=== PATIENT | female | born 1975 | race Caucasian/White ===

== ENCOUNTER 2016-07-22 17:19 | Inpatient (IN) ==
[2016-07-22] MEDS ORDERED: 0.9 % Sodium Chloride 1,000 ML IVC ONE (17:38)
[2016-07-22] MEDS ORDERED: Ipratropium/Albuterol Neb 3 ML IH ONE (17:38)
[2016-07-22] MEDS ORDERED: Levofloxacin 750 MG/150 ML 750 MG/150 ML BAG IVPB ONE (17:38)
--- NOTE | 2016-07-22 17:38 | Emergency Department Note ---
Disposition Clinical Impression: Pneumonia Qualifiers: Pneumonia type: due to unspecified organism Laterality: right Lung location: upper lobe of lung Qualified Code(s): J18.1 - Lobar pneumonia, unspecified organism Disposition: Admitted As Inpatient Condition: Fair Referrals: Han Cuello DO [Primary Care Provider] - Forms: ED Satisfaction Letter URI/Sore Throat HPI - General Chief Complaint: ED Upper Respiratory Infection Stated Complaint: Possible pneumonia, flu Time Seen by Provider: 07/22/16 17:32 Source: patient, family Mode of arrival: private vehicle Limitations: no limitations Nursing Notes Reviewed: Yes Vital Signs Reviewed: Yes - History of Present Illness HPI Narrative: Patient reports that she has been feeling poorly for about 2 weeks. She relates 2 days ago she went to urgent care and was thought to have bronchitis or pneumonia. She states she received a shot and 5 prescriptions. She has been gradually worse at home despite doing home aerosols. She states her saturations were 91-92% at the urgent care and up and about 94% at home. She saw her nurse practitioner today and is advised that she probably need to be admitted for likely flu or pneumonia with failure of outpatient treatment. She states she is still coughing up green phlegm and having severe dyspnea on exertion. She reports fevers, chills and diffuse muscle aches. She states she has just had slight sore throat and ear pain in the last day. She denies nausea , vomiting, diarrhea or abdominal pain. She denies being around anybody else who has had similar illness. Pt Subjective Complaint: fever, cough, flu symptoms, sore throat, earache Onset (ago): day(s) Duration: gradually worsening Severity: moderate Improves with: vaporizer Worsens with: exertion, night If sputum, description: green Context: multiple patients with similar complaints Associated symptoms: Reports: fever, chills, myalgias, headache, sore throat, cough, shortness of breath, ear pain. Denies: stiff neck, chest pain, nausea, vomiting, diarrhea, dysuria, rash, epistaxis Treatments prior to arrival: "cold medicine", antibiotics, other healthcare encounter for this problem - Related Data Home Medications Medication Instructions Recorded Confirmed FLUoxetine HCl [Prozac] 40 mg PO QAM 07/22/16 07/22/16 Gabapentin [Neurontin] 300 mg PO BID 07/22/16 07/22/16 Omeprazole 40 mg PO QAM 07/22/16 07/22/16 Valsartan/Hydrochlorothiazide 1 each PO QAM 07/22/16 07/22/16 [Diovan Hct 160-25 mg Tablet] Previous Rx's Medication Instructions Recorded Albuterol Neb [Proventil Neb] 2.5 mg IH Q4HR #30 vial.neb 07/20/16 Albuterol Sulfate [Albuterol 2 puff IH Q4HR PRN #1 hfa.aer.ad 07/20/16 Inhaler] Cephalexin [Keflex] 500 mg PO TID #30 capsule 07/20/16 MethylPREDNISolone [Medrol] 4 mg PO DAILY #21 tablet 07/20/16 Allergies Allergy/AdvReac Type Severity Reaction Status Date / Time No Known Allergies Allergy Verified 07/20/16 17:39 All systems ED: reviewed and negative except as stated. URI PMH - Past Medical History Medical history: Reports: diabetes, hypertension, other (Obesity) Surgical history: Reports: other (Gastric sleeve) Psychiatric history: Reports: anxiety, depression - Social History Smoking Status: Never smoker Alcohol use: Reports: none Drug use: Reports: none Physical Exam - General Limitations: no limitations General appearance: alert, in no apparent distress - Head Head exam: atraumatic, normocephalic, normal inspection - Eye Eye exam: Present: normal appearance, PERRL, EOMI. Absent: scleral icterus, conjunctival injection - ENT ENT exam: normal exam, normal oropharynx, mucous membranes moist - Neck Neck exam: Present: normal inspection, full ROM, trachea midline. Absent: tenderness - Chest Chest inspection: Present: normal inspection, symmetric chest wall rise - Respiratory Respiratory exam: Present: respiratory distress, prolonged expiratory phase. Absent: wheezes, accessory muscle use - Cardiovascular Cardiovascular exam: Present: regular rate, normal rhythm, normal heart sounds. Absent: tachycardia - Abdominal Exam Abdominal exam: Present: soft, Non-Tender, normal bowel sounds. Absent: tenderness, distention, guarding, rebound, rigidity - Extremities Exam Extremities exam: Present: normal inspection, full ROM, normal capillary refill. Absent: tenderness, pedal edema - Expanded Lower Extremity Exam Neurovascular/Tendon exam: Present: normal capillary refill. Absent: motor deficit, sensory deficit, tendon deficit Gait: observed and normal - Back Exam Back exam: Present: normal inspection, full ROM. Absent: tenderness, CVA tenderness (R), CVA tenderness (L) - Neurological Exam Neurological exam: Present: alert, oriented X3 - Psychiatric Psychiatric exam: Present: normal affect, normal mood - Skin Skin exam: Present: warm, dry, intact, normal color. Absent: rash, cyanosis, diaphoresis, pallor Course Course Narrative: 183: Care has been discussed with Dr. Doan. Verbal orders are obtained for the patient's continued inpatient observation. Vital Signs Temperature 98.2 F 07/22/16 17:22 Pulse Rate 78 07/22/16 17:22 Respiratory Rate 20 07/22/16 17:22 Blood Pressure 185/98 07/22/16 17:22 O2 Sat by Pulse Oximetry 95 07/22/16 17:22 Temperature 98.2 F 07/22/16 17:28 Pulse Rate 69 07/22/16 18:19 Respiratory Rate 16 07/22/16 18:36 Blood Pressure 144/99 07/22/16 18:19 O2 Sat by Pulse Oximetry 95 07/22/16 18:36 Oxygen Delivery Oxygen Delivery Nasal Cannula Upper Respiratory Infection - Differential Diagnosis Differential Diagnosis: Likely: upper respiratory infection, other viral infection, influenza, pneumonia - Lab Data Lab results reviewed: Yes I reviewed the patient's lab results. Result diagrams: 07/22/16 17:50 07/22/16 17:50 Lab Results 07/22/16 07/22/16 Range/Units 17:50 17:50 WBC 18.2 H (4.3-11.1) K/mcL RBC 4.19 (3.82-4.97) M/mcL Hgb 12.1 (11.5-15.4) g/dL Hct 36.2 (35.3-44.9) % MCV 86.4 (83.0-100.0) fL MCH 28.9 (28.0-33.3) pg MCHC 33.4 (31.6-35.5) g/dL RDW 13.5 (11.5-14.5) % Plt Count 346 (140-400) K/mcL MPV 11.2 (9.4-12.4) fL Immature Gran % 2.5 (0-4) % Seg Neutrophils % 77.0 % Lymphocytes % 13.2 % Monocytes % 6.0 % Eosinophils % 0.9 % Basophils % 0.4 % Neutrophils # 14.0 H (1.6-8.9) K/mcL Lymphocytes # 2.4 (0.6-4.6) K/mcL Monocytes # 1.1 (0.0-1.3) K/mcL Eosinophils # 0.2 (0.0-0.6) K/mcL Basophils # 0.1 (0.0-0.2) K/mcL Sodium 137 (136-145) mEq/L Potassium 3.9 (3.5-4.5) mEq/L Chloride 100 (98-109) mEq/L Carbon Dioxide 24 (19-29) mEq/L BUN 19 (7-20) mg/dL Creatinine 0.91 (0.57-1.11) mg/dL Est GFR ( Amer) > 60 (> 60) Est GFR (Non-Af Amer) > 60 (> 60) BUN/Creatinine Ratio 21 (6-26) Glucose 239 H (70-99) mg/dL Calculated Osmolality 294 (280-300) Calcium 9.0 (8.6-10.8) mg/dL - Radiology Data Radiology results reviewed: Yes I reviewed the patient's radiology results. Single view chest x-ray is performed. This demonstrates a right upper lobe infiltrate without other acute findings. This is on my interpretation. Impressions Chest X-Ray 07/22/16 17:38 IMPRESSION: Perihilar right mid lung consolidation concerning for pneumonia or atelectasis. Follow-up radiographs suggested in 6-8 weeks. D/ / Trav Valdovinos MD / Trav Valdovinos MD Interpreting Provider: Trav Valdovinos MD
[2016-07-22 18:08] LABS: Basophils # 0.1 K/mcL (0.0-0.2); Basophils % 0.4 %; Eosinophils # 0.2 K/mcL (0.0-0.6); Eosinophils % 0.9 %; Hematocrit 36.2 % (35.3-44.9); Hemoglobin 12.1 g/dL (11.5-15.4); Immature Granulocytes % 2.5 % (0-4); Lymphocytes # 2.4 K/mcL (0.6-4.6); Lymphocytes % 13.2 %; Mean Corpuscular HGB Conc 33.4 g/dL (31.6-35.5); Mean Corpuscular Hemoglobin 28.9 pg (28.0-33.3); Mean Corpuscular Volume 86.4 fL (83.0-100.0); Mean Platelet Volume 11.2 fL (9.4-12.4); Monocytes # 1.1 K/mcL (0.0-1.3); Platelet Count 346 K/mcL (140-400); Red Blood Count 4.19 M/mcL (3.82-4.97); Red Cell Distribution Width 13.5 % (11.5-14.5)
[2016-07-22 18:24] LABS: BUN/Creatinine Ratio 21 (6-26); Blood Urea Nitrogen 19 mg/dL (7-20); Carbon Dioxide 24 mEq/L (19-29); Chloride 100 mEq/L (98-109); Glucose 239 mg/dL (70-99); Osmolality,Calculated 294 (280-300); Potassium 3.9 mEq/L (3.5-4.5); Sodium 137 mEq/L (136-145); eGFR For African Americans > 60 (> 60); eGFR For Non-African Americans > 60 (> 60)
[2016-07-22] MEDS ORDERED: Naloxone 0.4 MG/ML INJ IVP PRN (20:01)
[2016-07-22] MEDS ORDERED: Ondansetron 4 MG/2 ML VIAL IVP PRN (20:01)
[2016-07-22] MEDS ORDERED: Acetaminophen 325 MG TABLET PO PRN (20:01)
[2016-07-22] MEDS ORDERED: MOM Conc 10 ML UD.LIQ PO PRN (20:01)
[2016-07-22] MEDS ORDERED: Albuterol 2.5 MG/3 ML NEBULIZER IH SCH (20:01)
[2016-07-22] MEDS: Gabapentin 300 MG CAPSULE PO SCH (21:01)
[2016-07-22] MEDS: 0.9 % Sodium Chloride 1,000 ML IVC SCH (21:02)
[2016-07-22] MEDS: Ipratropium/Albuterol Neb 3 ML IH SCH (21:34)
[2016-07-22] MEDS ORDERED: Albuterol 2.5 MG/3 ML NEBULIZER IH PRN (21:42)
[2016-07-23] MEDS: MethylPREDNISolone 40 MG/ML VIAL IVP SCH ×2 (01:21→09:47)
[2016-07-23] MEDS: Ipratropium/Albuterol Neb 3 ML IH SCH ×2 (04:33→10:02)
[2016-07-23] MEDS: 0.9 % Sodium Chloride 1,000 ML IVC SCH (05:25)
[2016-07-23] MEDS: *HR* Enoxaparin 40 MG/0.4 ML SYRINGE SQ SCH (06:22)
[2016-07-23] MEDS: FLUoxetine 20 MG CAPSULE PO SCH (09:47)
[2016-07-23] MEDS: Ibuprofen 400 MG TABLET PO PRN (09:47)
[2016-07-23] MEDS: Levofloxacin 750 MG/150 ML 750 MG/150 ML BAG IVPB SCH (09:47)
[2016-07-23] MEDS: Gabapentin 300 MG CAPSULE PO SCH ×2 (09:47→20:37)
[2016-07-23] MEDS: Valsartan 160 MG TABLET PO SCH (09:50)
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
[2016-07-23] MEDS: Ipratropium/Albuterol Neb 3 ML IH PRN ×2 (16:15→20:52)
[2016-07-23] MEDS: PredniSONE 20 MG TABLET PO SCH (16:53)
[2016-07-24] MEDS: Ibuprofen 400 MG TABLET PO PRN ×3 (04:18→21:18)
[2016-07-24 05:50] LABS: Basophils % 0.3 %; Eosinophils % 0.1 %; Hematocrit 33.5 % (35.3-44.9); Hemoglobin 11.2 g/dL (11.5-15.4); Immature Granulocytes % 2.6 % (0-4); Lymphocytes # 1.6 K/mcL (0.6-4.6); Lymphocytes % 10.9 %; Mean Corpuscular HGB Conc 33.4 g/dL (31.6-35.5); Mean Corpuscular Hemoglobin 29.7 pg (28.0-33.3); Mean Corpuscular Volume 88.9 fL (83.0-100.0); Mean Platelet Volume 11.5 fL (9.4-12.4); Monocytes # 1.1 K/mcL (0.0-1.3); Monocytes % 7.3 %; Neutrophils # 11.4 K/mcL (1.6-8.9); Platelet Count 308 K/mcL (140-400); Red Blood Count 3.77 M/mcL (3.82-4.97); Red Cell Distribution Width 13.9 % (11.5-14.5); Segmented Neutrophils % 78.8 %
[2016-07-24] MEDS: *HR* Enoxaparin 40 MG/0.4 ML SYRINGE SQ SCH (06:39)
[2016-07-24] MEDS: PredniSONE 20 MG TABLET PO SCH ×2 (08:17→17:18)
[2016-07-24] MEDS: Valsartan 160 MG TABLET PO SCH (08:18)
[2016-07-24] MEDS: Gabapentin 300 MG CAPSULE PO SCH ×2 (08:19→21:09)
[2016-07-24] MEDS: FLUoxetine 20 MG CAPSULE PO SCH (08:19)
[2016-07-24] MEDS: Levofloxacin 750 MG/150 ML 750 MG/150 ML BAG IVPB SCH (08:20)
--- NOTE | 2016-07-24 08:51 | Internal Med Progress Note ---
Date of Encounter: 07/24/16 Time of Encounter: 08:45 - Assessment and plan (1) Pneumonia Current Visit: Yes Status: Acute Assessment and plan: July 24. Continue Levaquin and prednisone with Mucinex. Qualifiers: Pneumonia type: due to unspecified organism Laterality: right Lung location: middle lobe of lung Qualified Code(s): J18.1 - Lobar pneumonia, unspecified organism - Subjective Interval history: July 24. She has no new complaints. She feels minimally improved. - Constitutional Vitals: Temp Pulse Resp BP Pulse Ox 97.8 F 79 24 155/82 96 07/24/16 08:14 07/24/16 08:14 07/24/16 08:14 07/24/16 08:14 07/24/16 08:14 Exam: She is dyspneic at rest. I reviewed her medications and lab results. Internal Medicine: Result - Labs CBC & Chem 7: 07/24/16 05:25 07/22/16 17:50 Labs: Short CBC 07/24/16 Range/Units 05:25 WBC 14.4 H (4.3-11.1) K/mcL Hgb 11.2 L (11.5-15.4) g/dL Hct 33.5 L (35.3-44.9) % Plt Count 308 (140-400) K/mcL Neutrophils # 11.4 H (1.6-8.9) K/mcL Consult Discharge Plan - Plan Referrals: Han Cuello DO [Primary Care Provider] - 1 week
[2016-07-24] MEDS: Ipratropium/Albuterol Neb 3 ML IH PRN ×2 (10:46→20:08)
[2016-07-24] MEDS: 0.9 % Sodium Chloride 1,000 ML IVC SCH (23:21)
[2016-07-25] MEDS: Ipratropium/Albuterol Neb 3 ML IH PRN ×2 (03:31→10:23)
[2016-07-25] MEDS: *HR* Enoxaparin 40 MG/0.4 ML SYRINGE SQ SCH (06:49)
[2016-07-25] MEDS: Ibuprofen 400 MG TABLET PO PRN (06:49)
[2016-07-25 08:37] VITALS: BP 156/95
[2016-07-25] MEDS: PredniSONE 20 MG TABLET PO SCH (08:44)
[2016-07-25] MEDS: Levofloxacin 750 MG/150 ML 750 MG/150 ML BAG IVPB SCH (08:45)
[2016-07-25] MEDS: Valsartan 160 MG TABLET PO SCH (08:45)
[2016-07-25] MEDS: Gabapentin 300 MG CAPSULE PO SCH (08:46)
[2016-07-25] MEDS: FLUoxetine 20 MG CAPSULE PO SCH (08:46)
[2016-07-25] MEDS ORDERED: Valsartan 160 MG TABLET PO ONE (09:40)
--- NOTE | 2016-07-25 10:00 | Discharge Summary ---
Date of Encounter: 07/25/16 Time of Encounter: 09:50 - Discharge Diagnosis (1) Pneumonia Priority: Primary Status: Acute Qualifiers: Pneumonia type: due to unspecified organism Laterality: right Lung location: middle lobe of lung Qualified Code(s): J18.1 - Lobar pneumonia, unspecified organism - Discharge Medications Prescriptions: Lactobacillus [Culturelle] 1 each PO BID #6 cap.sprink Levofloxacin [Levaquin] 750 mg PO DAILY #3 tablet Home Medications: Albuterol Neb [Proventil Neb] 2.5 mg IH Q4HR #30 vial.neb 07/20/16 [Rx] Albuterol Sulfate [Albuterol Inhaler] 2 puff IH Q4HR PRN #1 hfa.aer.ad 07/20/16 [Rx] MethylPREDNISolone [Medrol] 4 mg PO DAILY #21 tablet 07/20/16 [Rx] FLUoxetine HCl [Prozac] 40 mg PO QAM 07/22/16 [History] Gabapentin [Neurontin] 300 mg PO BID 07/22/16 [History] Omeprazole 40 mg PO QAM 07/22/16 [History] Valsartan/Hydrochlorothiazide [Diovan Hct 160-25 mg Tablet] 2 each PO QAM MDD 320mg/25mg 07/22/16 [History] Zofran 8 mg PO TID PRN 07/22/16 [History] Lactobacillus [Culturelle] 1 each PO BID #6 cap.sprink 07/25/16 [Rx] Levofloxacin [Levaquin] 750 mg PO DAILY #3 tablet 07/25/16 [Rx] Allergies/Adverse Reactions: Allergies No Known Allergies Allergy (Verified 07/20/16 17:39) Date of admission: 07/23/16 13:58 Primary care physician: Han Cuello DO - Patient Status Disposition: Home, Self-Care Condition: Fair Overall status at discharge: patient is progressing back to baseline - Discharge Instructions Follow Up With: Han Cuello DO [Primary Care Provider] - 1 week - Diet and Activity Activity: resume usual activities as tolerated Diet: advance to your usual diet Hospital course: Ms. Johns is a 41 year old female who came to emergency room stating she had onset of cough with sore throat and dyspnea approximately 2 weeks earlier. Her symptoms noticeably worsened 4 days prior to coming to the hospital and she developed diffuse myalgias and arthralgias. She was evaluated in emergency room and felt to have right lung pneumonia. Initial orders were written by the emergency room physician. I saw her on July 23 and performed a history and physical. She was started on IV Levaquin and Solu-Medrol through emergency room. I changed her to oral prednisone. Her WBC improved to 14.4 on the following day. She remained afebrile throughout her hospital stay. When I saw her on July 25 she had improved further and was stable for discharge home. She will continue with antibiotics and probiotic for 3 additional days after discharge. She will follow with Dr. Han Cuello within 1 week. Room air oximetry be checked on the 6 minute walk prior to discharge. - Time Spent with Patient Total time spent providing and/or coordinating discharge services: - Constitutional Vitals: Temp Pulse Resp BP Pulse Ox 98.6 F 76 16 156/95 96 07/25/16 08:34 07/25/16 08:34 07/25/16 08:34 07/25/16 08:34 07/25/16 08:34
[2016-07-26] MEDS ORDERED: Valsartan 160 MG TABLET PO SCH (09:00)
== END 2016-07-25 11:05 | disposition home or self-care (01) | DRG 194 ==
LOC: INPPIK 17:19 → EMEROOPIK 17:19 → INPPIK 19:45
PROVIDERS: ADMIT Internal Medicine; ATTEND Internal Medicine

== ENCOUNTER 2016-08-13 17:42 | Observation (INO) ==
[2016-08-13] MEDS ORDERED: Levofloxacin 500 MG/100 ML 500 MG/100 ML BAG IVPB ONE (17:52)
[2016-08-13] MEDS ORDERED: 0.9 % Sodium Chloride 1,000 ML IVC SCH ×2 (18:00→20:00)
[2016-08-13 18:19] LABS: Basophils % 0.4 %; Eosinophils # 0.3 K/mcL (0.0-0.6); Eosinophils % 2.8 %; Hematocrit 34.8 % (35.3-44.9); Hemoglobin 11.7 g/dL (11.5-15.4); Immature Granulocytes % 0.7 % (0-4); Lymphocytes # 1.9 K/mcL (0.6-4.6); Lymphocytes % 20.9 %; Mean Corpuscular HGB Conc 33.6 g/dL (31.6-35.5); Mean Corpuscular Hemoglobin 29.5 pg (28.0-33.3); Mean Corpuscular Volume 87.7 fL (83.0-100.0); Mean Platelet Volume 10.9 fL (9.4-12.4); Monocytes # 0.4 K/mcL (0.0-1.3); Monocytes % 4.4 %; Neutrophils # 6.3 K/mcL (1.6-8.9); Platelet Count 239 K/mcL (140-400); Red Blood Count 3.97 M/mcL (3.82-4.97); Red Cell Distribution Width 14.4 % (11.5-14.5); Segmented Neutrophils % 70.8 %
[2016-08-13 18:23] LABS: INR 1.1; Prothrombin Time 11.6 Seconds (9.4-12.1)
[2016-08-13 18:25] LABS: Activated Partial Thrombo Time 26.6 Seconds (26.0-36.0)
[2016-08-13 18:32] LABS: BUN/Creatinine Ratio 15 (6-26); Blood Urea Nitrogen 13 mg/dL (7-20); Calcium 8.9 mg/dL (8.6-10.8); Carbon Dioxide 23 mEq/L (19-29); Chloride 101 mEq/L (98-109); Glucose 398 mg/dL (70-99); Osmolality,Calculated 303 (280-300); Potassium 3.7 mEq/L (3.5-4.5); Sodium 138 mEq/L (136-145); eGFR For African Americans > 60 (> 60); eGFR For Non-African Americans > 60 (> 60)
--- NOTE | 2016-08-13 19:19 | Emergency Department Note ---
Disposition Clinical Impression: Dyspnea Disposition: Admitted As Inpatient Condition: Fair Time of Disposition: 20:03 ([facility]) SOB HPI - General Chief Complaint: ED Shortness of Breath/Dyspnea Stated Complaint: sob, wheezing Time Seen by Provider: 08/13/16 17:50 Source: patient Mode of arrival: ambulatory Limitations: physical limitation Nursing Notes Reviewed: Yes Vital Signs Reviewed: Yes - History of Present Illness 41-year-old young female presents to emergency with dyspnea she has had dyspnea ever since she had pneumonia couple weeks ago has just never cleared up she has been on a couple rounds of steroids she is even follow with her family physician who did a PFT test today states that she just continued to progressively worsen she denies any relief with bronchodilators or steroids she denies diarrhea she has had cough congestion sputum production she denies any blurred vision double vision she has had recent weight gain she denies any numbness tingling weakness recent free of blood clots as stated remained relatively active during this recent illness Pt Subjective Complaint: shortness of breath, cough Onset (ago): week(s) Context: recent illness Severity: severe Consistency/Duration: gradually worsening Improves with: nothing Worsens with: exertion Associated symptoms: Reports: cough, wheezing, sputum production. Denies: chest pain, pain with inspiration, fever, orthopnea, lower extremity pain, polyuria, polydipsia, parasthesias, palpitations, hemoptysis, diaphoresis, nausea/vomiting, syncope, abdominal pain, rash Treatment prior to arrival: bronchodilator Cough present: Yes Cough Description: Non-Productive, Hacking, Bronchospastic Cough Frequency: Intermittent Sputum production: No - Related Data Home Medications Medication Instructions Recorded Confirmed FLUoxetine HCl [Prozac] 40 mg PO QAM 07/22/16 08/13/16 Gabapentin [Neurontin] 300 mg PO BID 07/22/16 08/13/16 Omeprazole 40 mg PO QAM 07/22/16 08/13/16 Valsartan/Hydrochlorothiazide 2 each PO QAM MDD 320mg/25mg 07/22/16 08/13/16 [Diovan Hct 160-25 mg Tablet] Zofran 8 mg PO TID PRN 07/22/16 08/13/16 Previous Rx's Medication Instructions Recorded Albuterol Neb [Proventil Neb] 2.5 mg IH Q4HR #30 vial.neb 07/20/16 Albuterol Sulfate [Albuterol 2 puff IH Q4HR PRN #1 hfa.aer.ad 07/20/16 Inhaler] Lactobacillus [Culturelle] 1 each PO BID #6 cap.sprink 07/25/16 Allergies Allergy/AdvReac Type Severity Reaction Status Date / Time No Known Allergies Allergy Verified 07/20/16 17:39 All systems ED: reviewed and negative except as stated. Constitutional: Reports: weakness. Denies: fever, chills Eyes: Denies: eye pain, eye discharge ENT ED: Reports: congestion. Denies: ear pain, throat pain Cardiovascular: Denies: chest pain, palpitations Respiratory: Reports: cough, dyspnea, wheezes, sputum production Gastrointestinal: Denies: abdominal pain, nausea, vomiting Genitourinary: Denies: urgency Musculoskeletal: Denies: back pain Integumentary: Denies: abrasion Neurological: Denies: headache Psychiatric: Denies: anxiety Endocrine: Denies: fatigue Hematological/Lymphatic: Denies: easy bleeding Allergic/Immunologic: Denies: facial swelling Past Medical History - Past Medical History Attestation: Yes The following information was validated with the patient. Source: patient, old records reviewed, nursing notes reviewed Medical history: Reports: GERD, hypertension, other Psychiatric history: Reports: anxiety, depression - Social History Smoking Status: Never smoker Smokeless Tobacco Status: No Alcohol use: Reports: none Drug use: Reports: none Physical Exam - General General appearance: alert, anxious, in distress, obese - Head Head exam: atraumatic, normocephalic, normal inspection - Eye Eye exam: Present: normal appearance, PERRL, EOMI - ENT ENT exam: normal exam, normal oropharynx, mucous membranes moist, TM's normal bilaterally, normal external ear exam - Neck Neck exam: Present: normal inspection, full ROM, trachea midline - Chest Chest inspection: Present: normal inspection, symmetric chest wall rise - Respiratory Respiratory exam: Present: wheezes, accessory muscle use, prolonged expiratory phase - Cardiovascular Cardiovascular exam: Present: regular rate, normal rhythm, normal heart sounds - Abdominal Exam Abdominal exam: Present: soft, Non-Tender, normal bowel sounds. Absent: mass, pulsatile mass - Extremities Exam Extremities exam: Present: normal inspection, full ROM, normal capillary refill. Absent: tenderness, joint swelling - Back Exam Back exam: Present: normal inspection, full ROM. Absent: muscle spasm - Neurological Exam Neurological exam: Present: alert, oriented X3, CN II-XII intact - Psychiatric Psychiatric exam: Present: normal affect, normal mood - Skin Skin exam: Present: warm, dry, intact, normal color Course Course Narrative: Examine patient is given aerosols antibiotics and steroids I reviewed the chest x-ray showing no acute process she just had a PFT test earlier today which was indeterminate of asthma or COPD we will reassess patient says she is doing better post-aerosol Vital Signs Temperature 97.4 F L 08/13/16 17:45 Pulse Rate 101 08/13/16 17:45 Respiratory Rate 20 08/13/16 17:45 Blood Pressure 163/94 08/13/16 17:45 O2 Sat by Pulse Oximetry 95 08/13/16 17:45 Temperature 98.6 F 08/14/16 00:19 Pulse Rate 93 08/14/16 00:19 Respiratory Rate 16 08/14/16 00:19 Blood Pressure 149/77 08/14/16 00:19 O2 Sat by Pulse Oximetry 91 L 08/14/16 00:19 Oxygen Delivery Oxygen Delivery Room Air Shortness of Breath/Dyspnea - Differential Diagnosis Likely: acute exacerbation of chronic obstructive airways disease - Medical Records Medical records reviewed: Yes I reviewed the patient's medical records. - Lab Data Lab results reviewed: Yes I reviewed the patient's lab results. Result diagrams: 08/13/16 16:05 08/13/16 16:05 Lab Results 08/13/16 08/13/16 08/13/16 Range/Units 16:05 16:05 16:05 WBC 8.9 (4.3-11.1) K/mcL RBC 3.97 (3.82-4.97) M/mcL Hgb 11.7 (11.5-15.4) g/dL Hct 34.8 L (35.3-44.9) % MCV 87.7 (83.0-100.0) fL MCH 29.5 (28.0-33.3) pg MCHC 33.6 (31.6-35.5) g/dL RDW 14.4 (11.5-14.5) % Plt Count 239 (140-400) K/mcL MPV 10.9 (9.4-12.4) fL Immature Gran % 0.7 (0-4) % Seg Neutrophils % 70.8 % Lymphocytes % 20.9 % Monocytes % 4.4 % Eosinophils % 2.8 % Basophils % 0.4 % Neutrophils # 6.3 (1.6-8.9) K/mcL Lymphocytes # 1.9 (0.6-4.6) K/mcL Monocytes # 0.4 (0.0-1.3) K/mcL Eosinophils # 0.3 (0.0-0.6) K/mcL Basophils # 0.0 (0.0-0.2) K/mcL PT 11.6 (9.4-12.1) Seconds INR 1.1 APTT 26.6 (26.0-36.0) Seconds Sodium 138 (136-145) mEq/L Potassium 3.7 (3.5-4.5) mEq/L Chloride 101 (98-109) mEq/L Carbon Dioxide 23 (19-29) mEq/L BUN 13 (7-20) mg/dL Creatinine 0.86 (0.57-1.11) mg/dL Est GFR ( Amer) > 60 (> 60) Est GFR (Non-Af Amer) > 60 (> 60) BUN/Creatinine Ratio 15 (6-26) Glucose 398 H (70-99) mg/dL Calculated Osmolality 303 H (280-300) Calcium 8.9 (8.6-10.8) mg/dL - Radiology Data Radiology results reviewed: Yes I reviewed the patient's radiology results. ITS Impressions Chest X-Ray 08/13/16 17:53 IMPRESSION: Heart size minimally enlarged but stable. No acute findings D/ / Rodger Sandhu MD / Rodger Sandhu MD Interpreting Provider: Rodger Sandhu MD Critical Care Time Critical Care Time: No
[2016-08-13] MEDS ORDERED: Insulin Regular, Human 100 UNIT/ML SQ ONE (19:22)
[2016-08-14] MEDS ORDERED: Dextrose Gel 15 GM PO PRN ×2 (00:33)
[2016-08-14] MEDS ORDERED: 0.9 % Sodium Chloride 1,000 ML IVC SCH (00:33)
[2016-08-14] MEDS ORDERED: Naloxone 0.4 MG/ML INJ IVP PRN (00:33)
[2016-08-14] MEDS ORDERED: D5% in Water 1,000 ML IV PRN (00:33)
[2016-08-14] MEDS ORDERED: *HR* Dextrose 50 % in Water (Syg) 50 ML SYRINGE IVP PRN (00:33)
[2016-08-14] MEDS ORDERED: Ondansetron ODT 4 MG TAB.RAPDIS PO PRN (00:33)
[2016-08-14] MEDS ORDERED: Insulin LISPRO 300 UNITS/3 ML VIAL SQ ONE (02:12)
[2016-08-14] MEDS: Levofloxacin 500 MG/100 ML 500 MG/100 ML BAG IVPB SCH ×2 (02:20→23:31)
[2016-08-14] MEDS: Gabapentin 300 MG CAPSULE PO SCH ×3 (02:30→22:17)
[2016-08-14] MEDS: Lactobacillus 1 EACH CAP.SPRINK PO SCH ×3 (02:30→22:16)
[2016-08-14] MEDS: Acetaminophen 325 MG TABLET PO PRN ×2 (02:31→10:17)
[2016-08-14 03:22] LABS: Bilirubin,Urine Negative (Negative); Blood,Urine Negative (Negative); Clarity,Urine Clear (Clear); Glucose,Urine (UA) >=1000 mg/dL (Normal); Ketones,Urine 40 mg/dL (Negative); Leukocyte Esterase,Urine Negative (Negative); Nitrite,Urine Negative (Negative); Protein,Urine Negative (Neg-Trace); Urobilinogen,Urine Normal (Normal)
[2016-08-14 03:23] LABS: Color,Urine Light Yellow (Yellow)
[2016-08-14] MEDS: Ipratropium/Albuterol Neb 3 ML IH SCH ×3 (03:33→10:10)
[2016-08-14] MEDS: 0.9 % Sodium Chloride 1,000 ML IVC SCH ×2 (05:28→18:18)
[2016-08-14 06:01] LABS: Basophils % 0.2 %; Eosinophils % 0.2 %; Hematocrit 36.5 % (35.3-44.9); Immature Granulocytes % 0.8 % (0-4); Lymphocytes # 0.9 K/mcL (0.6-4.6); Lymphocytes % 8.4 %; Mean Corpuscular HGB Conc 32.9 g/dL (31.6-35.5); Mean Corpuscular Hemoglobin 28.7 pg (28.0-33.3); Mean Corpuscular Volume 87.3 fL (83.0-100.0); Mean Platelet Volume 11.9 fL (9.4-12.4); Monocytes # 0.1 K/mcL (0.0-1.3); Monocytes % 0.9 %; Neutrophils # 9.6 K/mcL (1.6-8.9); Platelet Count 285 K/mcL (140-400); Red Blood Count 4.18 M/mcL (3.82-4.97); Red Cell Distribution Width 14.3 % (11.5-14.5); Segmented Neutrophils % 89.5 %
[2016-08-14 06:18] LABS: BUN/Creatinine Ratio 16 (6-26); Blood Urea Nitrogen 13 mg/dL (7-20); Calcium 9.2 mg/dL (8.6-10.8); Carbon Dioxide 20 mEq/L (19-29); Chloride 102 mEq/L (98-109); Glucose 389 mg/dL (70-99); Osmolality,Calculated 304 (280-300); Potassium 3.8 mEq/L (3.5-4.5); Sodium 139 mEq/L (136-145); eGFR For African Americans > 60 (> 60); eGFR For Non-African Americans > 60 (> 60)
[2016-08-14 06:35] LABS: INR 1.1; Prothrombin Time 12.4 Seconds (9.4-12.1)
[2016-08-14 06:38] LABS: Activated Partial Thrombo Time 24.7 Seconds (26.0-36.0)
[2016-08-14] MEDS: FLUoxetine 20 MG CAPSULE PO SCH (08:26)
[2016-08-14] MEDS: Insulin LISPRO 300 UNITS/3 ML VIAL SQ SCH ×4 (08:33→22:17)
[2016-08-14] MEDS: Valsartan 160 MG TABLET PO SCH (08:37)
[2016-08-14] MEDS ORDERED: Acetaminophen/Aspirin/Caffeine TABLET PO PRN (12:47)
[2016-08-14] MEDS ORDERED: Ibuprofen 600 MG TABLET PO ONE (12:58)
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
[2016-08-14] MEDS: *HR* Metformin 500 MG TABLET PO SCH ×2 (16:58→18:22)
[2016-08-14] MEDS: Albuterol 2.5 MG/3 ML NEBULIZER IH PRN (17:28)
[2016-08-15] MEDS: Acetaminophen 325 MG TABLET PO PRN ×2 (07:21→20:28)
[2016-08-15] MEDS: Insulin LISPRO 300 UNITS/3 ML VIAL SQ SCH ×4 (07:56→20:30)
[2016-08-15] MEDS: FLUoxetine 20 MG CAPSULE PO SCH (07:59)
[2016-08-15] MEDS: Valsartan 160 MG TABLET PO SCH (07:59)
[2016-08-15] MEDS: Gabapentin 300 MG CAPSULE PO SCH ×2 (08:00→20:28)
[2016-08-15] MEDS: *HR* Metformin 500 MG TABLET PO SCH ×2 (08:00→17:24)
[2016-08-15] MEDS: Lactobacillus 1 EACH CAP.SPRINK PO SCH (08:00)
--- NOTE | 2016-08-15 09:56 | Internal Med Progress Note ---
Date of Encounter: 08/15/16 Time of Encounter: 09:45 - Assessment and plan (1) Dyspnea Current Visit: Yes Status: Acute Assessment and plan: August 15. Chest CT was unremarkable. BN peptide is minimally elevated. Procalcitonin is pending. Qualifiers: Dyspnea type: shortness of breath Qualified Code(s): R06.02 - Shortness of breath (2) DM type 2 (diabetes mellitus, type 2) Current Visit: Yes Status: Chronic Assessment and plan: August 15. Hemoglobin A1c is pending. I will add Januvia and Amaryl. Continue metformin and Accu-Cheks with SSI Qualifiers: Diabetes mellitus complication status: with unspecified complications Diabetes mellitus chcf insulin use: without terminal makeup operator use Qualified Code( s): E11.8 - Type 2 diabetes mellitus with unspecified complications (3) Hypertension Current Visit: Yes Status: Chronic Assessment and plan: August 15. Continue valsartan and metoprolol and remain off HCTZ. Qualifiers: Hypertension type: essential hypertension Qualified Code(s): I10 - Essential (primary) hypertension - Subjective Interval history: August 15. She has no new complaints and feels better - Constitutional Vitals: Temp Pulse Resp BP Pulse Ox 97.5 F L 64 16 124/65 98 08/15/16 07:00 08/15/16 07:00 08/15/16 07:00 08/15/16 07:00 08/15/16 07:00 Exam: She is resting comfortably in bed. Her affect is bright and cheerful. Lungs are clear. I reviewed her medications, lab results, CT results and blood sugars. Internal Medicine: Result - Labs CBC & Chem 7: 08/14/16 04:48 08/14/16 04:48 - ABG Interpretation ABG results: PT/INR, D-dimer PT 12.4 Seconds (9.4-12.1) H 08/14/16 04:48 D-Dimer 229 ng/mLFEU (0-500) 08/14/16 16:37 - Impressions Impressions Chest CT 08/14/16 17:15 IMPRESSION: 1. No acute abnormality in the chest. 2. 4 x 4 mm nodule in the right middle lobe unchanged from at least 03/27/2013. Given the long-term stability this is considered benign and requires no follow-up. 3. Diffuse hepatic steatosis. 4. Status post laparoscopic gastric banding without complication identified. D/ / Hever Murillo MD / Hever Murillo MD Interpreting Provider: Hever Murillo MD Consult Discharge Plan - Plan Referrals: Elsi Moreno, [employer]ENT [Primary Care Provider] - 1 week
[2016-08-15] MEDS ORDERED: *HR* SitaGLIPtin 25 MG TABLET PO SCH (10:00)
[2016-08-15] MEDS: Albuterol 2.5 MG/3 ML NEBULIZER IH PRN ×3 (10:03→20:55)
[2016-08-15] MEDS: Fluconazole 100 MG TABLET PO SCH (12:42)
--- NOTE | 2016-08-15 13:02 | Electrocardiograph Report ---
[place] [id number] Test Date: 2016-08-14 Pat Name: Eda Johns Department: 9202 Room: [facility] Gender: F [address] [address] [employer]: : 1975 Requested By: Mario Alberto Doan Order Number: [id number] Reading MD: Addis Shi Measurements Intervals [place] Rate: 77 P: 58 CO: 201 QRS: 18 QRSD: 98 T: 17 QT: 383 QTc: 415 Interpretive Statements SINUS RHYTHM LOW QRS VOLTAGE IN PRECORDIAL LEADS Electronically Signed On 08-15-2016 13:00:44 EDT by Addis Shi
[2016-08-15 17:18] LABS: Hemoglobin A1C 9.9 %
[2016-08-16 05:16] LABS: Basophils % 0.3 %; Eosinophils # 0.2 K/mcL (0.0-0.6); Eosinophils % 2.1 %; Hematocrit 32.3 % (35.3-44.9); Hemoglobin 10.5 g/dL (11.5-15.4); Lymphocytes # 2.7 K/mcL (0.6-4.6); Lymphocytes % 31.4 %; Mean Corpuscular HGB Conc 32.5 g/dL (31.6-35.5); Mean Corpuscular Hemoglobin 28.8 pg (28.0-33.3); Mean Corpuscular Volume 88.7 fL (83.0-100.0); Mean Platelet Volume 11.1 fL (9.4-12.4); Monocytes # 0.5 K/mcL (0.0-1.3); Monocytes % 6.3 %; Neutrophils # 5.1 K/mcL (1.6-8.9); Platelet Count 240 K/mcL (140-400); Red Blood Count 3.64 M/mcL (3.82-4.97); Red Cell Distribution Width 14.8 % (11.5-14.5); Segmented Neutrophils % 58.9 %
[2016-08-16] MEDS: Insulin LISPRO 300 UNITS/3 ML VIAL SQ SCH (07:52)
[2016-08-16] MEDS: Gabapentin 300 MG CAPSULE PO SCH (07:52)
[2016-08-16] MEDS: *HR* Metformin 500 MG TABLET PO SCH (07:53)
[2016-08-16] MEDS: FLUoxetine 20 MG CAPSULE PO SCH (07:53)
[2016-08-16] MEDS: Valsartan 160 MG TABLET PO SCH (07:53)
[2016-08-16] MEDS: Fluconazole 100 MG TABLET PO SCH (07:54)
[2016-08-16] MEDS ORDERED: *HR* Glimepiride 2 MG TABLET PO SCH (08:00)
--- NOTE | 2016-08-16 11:26 | Discharge Summary ---
Date of Encounter: 08/16/16 Time of Encounter: 11:10 - Discharge Diagnosis (1) Dyspnea Priority: Primary Status: Acute Qualifiers: Dyspnea type: shortness of breath Qualified Code(s): R06.02 - Shortness of breath (2) DM type 2 (diabetes mellitus, type 2) Priority: Secondary Status: Chronic Qualifiers: Diabetes mellitus complication status: with unspecified complications Diabetes mellitus fdc insulin use: without fdc use Qualified Code( s): E11.8 - Type 2 diabetes mellitus with unspecified complications (3) Hypertension Priority: Secondary Status: Chronic Qualifiers: Hypertension type: essential hypertension Qualified Code(s): I10 - Essential (primary) hypertension - Discharge Medications Prescriptions: Glimepiride [Amaryl] 2 mg PO 0800 #30 tablet Metformin [Glucophage] 500 mg PO BIDWM #60 tablet Metoprolol XL (24 HR) Succ [Toprol XL] 50 mg PO DAILY #30 tab.er.24h Valsartan/Hydrochlorothiazide [Diovan Hct 160-25 mg Tablet] 1 each PO DAILY 365 Days Home Medications: Albuterol Neb [Proventil Neb] 2.5 mg IH Q4HR #30 vial.neb 07/20/16 [Rx] Albuterol Sulfate [Albuterol Inhaler] 2 puff IH Q4HR PRN #1 hfa.aer.ad 07/20/16 [Rx] FLUoxetine HCl [Prozac] 40 mg PO QAM 07/22/16 [History] Gabapentin [Neurontin] 300 mg PO BID 07/22/16 [History] Omeprazole 40 mg PO QAM 07/22/16 [History] Zofran 8 mg PO TID PRN 07/22/16 [History] Lactobacillus [Culturelle] 1 each PO BID #6 cap.sprink 07/25/16 [Rx] Glimepiride [Amaryl] 2 mg PO 0800 #30 tablet 08/16/16 [Rx] Metformin [Glucophage] 500 mg PO BIDWM #60 tablet 08/16/16 [Rx] Metoprolol XL (24 HR) Succ [Toprol XL] 50 mg PO DAILY #30 tab.er.24h 08/16/16 [ Rx] Valsartan/Hydrochlorothiazide [Diovan Hct 160-25 mg Tablet] 1 each PO DAILY 365 Days 08/16/16 [Rx] Allergies/Adverse Reactions: Allergies No Known Allergies Allergy (Verified 07/20/16 17:39) Procedures/tests Complete & Pending: Procedures Performed prior 72 hours Category Date Time Status CT chest wo con [CT] Routine Cat Scan 08/14/16 17:15 Completed ECG 12 lead ECG [ECG] Routine Y 08/14/16 16:21 Completed Date of admission: 08/13/16 20:19 Primary care physician: Han Cuello DO - Patient Status Disposition: Home, Self-Care Condition: Fair Overall status at discharge: patient is progressing back to baseline - Discharge Instructions Follow Up With: Elsi Moreno CNP [Primary Care Provider] - 1 week - Diet and Activity Activity: resume usual activities as tolerated Diet: diabetic diet Hospital course: Ms. Johns is a 41 year old female who came to emergency room stating she had increasing weakness and dyspnea since discharge from the hospital approximately 3 weeks ago after admission for pneumonia. She completed the prescribed course of antibiotics but felt dyspneic on exertion worsening over the following days. She also noted polyuria, polydipsia, and blurred vision. She went to her PCP office earlier the day of admission and was found to have blood sugar of over 300 mg percent. She states hemoglobin A1c was elevated at 10.1%. She was sent to emergency room. She was evaluated and admitted to [facility] floor for ongoing care needs. Initial orders were written by the emergency room physician. I saw her on August 14 and performed a history and physical. She was started on metformin. Accu-Cheks were done before meals and at bedtime with SSI. Hemoglobin A1c returned elevated at 9.9%. I started her on glimepiride 2 mg daily on August 15. Her blood sugars had improved to a stable level by August 16. She also received a dose of Januvia August 15 but appeared to have possible allergic reaction and was given Benadryl. Januvia will not be continued at discharge but she will be prescribed glimepiride and Glucophage. She was started on metoprolol for complaints of palpitations. Her blood pressure and heart rate improved overall during hospital stay. She will decreased valsartan/HCTZ to 1 pill daily and start Toprol-XL [address] was done and showed no obvious abnormality. D-dimer was unremarkable. I felt her dyspnea was due to multifactorial etiology including possible viral bronchitis as well as deconditioning. I recommended she increase her physical activity level attempt to lose weight gradually with diet intervention and exercise. On August 16 she was stable for discharge home. She will follow with her PCP Dr. Han Cuello within 1 week. - Time Spent with Patient Total time spent providing and/or coordinating discharge services: - Constitutional Vitals: Temp Pulse Resp BP Pulse Ox 98.3 F 74 18 105/59 95 08/16/16 07:26 08/16/16 07:26 08/16/16 07:26 08/16/16 07:26 08/16/16 08:36
[2016-08-16 11:30] VITALS: BP 151/88
== END 2016-08-16 12:34 | disposition home or self-care (01) ==
LOC: EMEROOPIK 17:42 → INPPIK 17:42
PROVIDERS: ADMIT Internal Medicine; ATTEND Internal Medicine